=== PATIENT | female | born 1940 | race African-American/Black ===

== ENCOUNTER 2016-12-31 10:16 | Day surgery (SDC) | payer MEDICARE, OTHER ==
--- NOTE | ~2016-12-31 | EGD ---
EGD REPORT [facility] [address] [address] NAME: KILEY AGUIRRE : [birth year] STATUS : REG [facility]#: [id number] AGE: 76 ADM/REG DATE : 12/31/16 MR#: [id number] REPORT SERV DATE: 12/31/16 DICTATED BY: EDGARD MANDEL DATE: 12/31/16 REPORT STATUS : Draft TRANSCRIBED BY: [employer] DATE: 12/31/16 [facility] Patient Name: Kiley Aguirre Date of : 1940 Attending MD: EDGARD MANDEL MD Procedure Date No Time: 12/31/2016 Procedure: Colonoscopy Indications: High risk colon cancer surveillance: Personal history of colonic polyps Referring MD: JAMES GONZALEZ MD Medicines: as per anesthesia Complications: No immediate complications. Procedure: Pre-Anesthesia Assessment: - ASA Grade Assessment: III - A patient with severe systemic disease. After I obtained informed consent, the scope was passed under direct vision. Throughout the procedure, the patient's blood pressure, pulse, and oxygen saturations were monitored continuously. The PCF [id number] was introduced through the anus and advanced to the cecum, identified by appendiceal orifice and ileocecal valve. The colonoscopy was somewhat difficult due to significant looping and a tortuous colon. The patient tolerated the procedure. The quality of the bowel preparation was adequate to identify polyps. Findings: The perianal and digital rectal examinations were normal. Diffuse melanosis was found in the entire colon. Internal hemorrhoids were found during endoscopy and were mild. Impression: - Melanosis in the colon. - Internal hemorrhoids. Recommendation: - Continue present medications. Procedure Code(s): --- Professional --- 72804, Colonoscopy, flexible, proximal to splenic flexure; diagnostic, with or without collection of specimen(s) by brushing or washing, with or without colon decompression (separate procedure) Diagnosis Code(s): --- Professional --- K63.89, Other specified diseases of intestine K64.8, Other hemorrhoids EGD REPORT [address] [place] [place] [address] NAME: KILEY AGUIRRE : 36 STATUS : REG [facility] [place] PAT#: [id number] AGE: 76 ADM/REG DATE : 12/31/16 MR#: [id number] REPORT SERV DATE: 12/31/16 DICTATED BY: EDGARD MANDEL. DATE: 12/31/16 REPORT STATUS : Draft TRANSCRIBED BY: [employer] DATE: 12/31/16 Z86.010, Personal history of colonic polyps CPT copyright 2013 [employer]. All rights reserved. The codes documented in this report are preliminary and upon animal feeder review may be revised to meet current compliance requirements. EDGARD MANDEL MD 12/31/2016 12:25 PM This report has been signed electronically. Number of Addenda: 0 Note Initiated On: 12/31/2016 11:54 AM Scope Withdrawal Time 0 hours 6 minutes [address] [place] [address] [place] [address]
[~2016-12-31 10:16] MED LIST: AMARYL2 PO; ASABAYER PO; ATEN50 PO; FORTAMET500 MG PO; HYZAAR1 TAB PO; LIPITOR20 PO; NORV10 PO; PERI-COLACE1 TAB PO
== END 2016-12-31 23:59 | disposition home health service (06) ==
LOC: DMU 10:16
PROVIDERS: Internal Medicine Gastroenterology
PROC: 0DJD8ZZ Inspection of Lower Intestinal Tract, Via Natural or Artificial Opening Endoscopic (ICD-10-PCS; principal; 2016-12-31 11:30)
DX: K64.8 Other hemorrhoids (principal); I25.2 Old myocardial infarction; I10 Essential (primary) hypertension; E78.00 Pure hypercholesterolemia, unspecified; M19.90 Unspecified osteoarthritis, unspecified site; E11.9 Type 2 diabetes mellitus without complications; G47.33 Obstructive sleep apnea (adult) (pediatric); K63.89 Other specified diseases of intestine; Z86.010 Personal history of colon polyps; Z88.0 Allergy status to penicillin; Z87.891 Personal history of nicotine dependence; Z90.710 Acquired absence of both cervix and uterus
CPT/HCPCS: 82962